=== PATIENT | male | born 1935 | race Caucasian/White ===

== ENCOUNTER 2017-01-20 14:07 | Inpatient (IN) ==
[2017-01-20] MEDS ORDERED: DUONEB NEB STA (14:46)
[2017-01-20] MEDS ORDERED: SOLU-MEDROL 40 MG IVP STA ×2 (14:51→19:19)
[2017-01-20 15:09] LABS: HEMATOCRIT 29.6 % (42.0-52.0); MEAN CORPUSCULAR HEMOGLOBIN 30.3 pg (27.0-31.0); MEAN CORPUSCULAR HGB CONC 30.4 (31.8-35.4); MEAN CORPUSCULAR VOLUME 99.7 fl (80.0-94.0); PLATELET COUNT 186 10^3/uL (140-440); RED BLOOD COUNT 2.97 10^6/ul (4.70-6.10)
--- NOTE | 2017-01-20 15:14 | ED.PDOC ---
General ED Provider: Dr. IVANA HANEY Chief Complaint: Shortness of Air Stated Complaint: Came for the worsening shortness of breath, he is been coughing, congested,. patient is on chemo. Time Seen by Physician: 15:12 Mode of Arrival: Wheelchair Information Source: Patient Primary Care Provider: MATTI VANN Nursing and Triage Documentation Reviewed and Agree: Yes Respiratory Complaint Exam - Shortness of Air Complaint/Exam Symptoms Are: Still present Timing: Constant Initial Severity: Moderate Current Severity: Mild Character: Reports: Dyspnea at rest, Dyspnea on exertion Aggravating: Reports: URI Alleviating: Reports: None Associated Signs and Symptoms: Reports: Cough, Wheezing, Nasal congestion. Denies: Chest pain with cough, Chest pain, Fever, Chills, Diaphoresis, Dizziness , Calf pain, Calf swelling, Edema, Rapid breathing, Labored breathing, Decreased intake Related History: Reports: Similar episode History of Healthcare-Acquired Pneumonia: No Pulmonary Embolism Risk Factors: Reports: None Cardiac Risk Factors: Reports: None Pseudomonas Risk Factors: Reports: None Tuberculosis Risk Factors: Reports: None Home Oxygen Use: No Recent Stress Test: No Recent Echo/LV Function: No Respiratory Distress: None Stridor Present: No Tracheal Deviation: No Subcutaneous Emphysema: No Accessory Muscle Use: No Retractions: Not Present Diminished Breath Sounds: No Prolonged Expiratory Phase: No Unable to Speak Full Sentences: No Fatigue: No Leg Swelling: No Di's Sign Present: No Grunting Respirations: No Kussmaul Respirations: No Differential Diagnoses: CHF, COPD Exacerbation, Pneumonia, Bronchitis Review of Systems - Review Of Systems Constitutional: Reports: Malaise, Weakness Eyes: Reports: No symptoms Ears, Nose, Mouth, Throat: Reports: No symptoms Respiratory: Reports: Cough, Short of air Cardiac: Reports: No symptoms GI: Reports: No symptoms : Reports: No symptoms Musculoskeletal: Reports: No symptoms Skin: Reports: No symptoms Neurological: Reports: No symptoms Endocrine: Reports: No symptoms Hematologic/Lymphatic: Reports: No symptoms All Other Systems: Reviewed and Negative Past Medical History - Past Medical History Previously Healthy: Yes Endocrine: Reports: None, Dyslipidemia Cardiovascular: Reports: CAD, Hypertension Respiratory: Reports: COPD Hematological: Reports: None Gastrointestinal: Reports: None Genitourinary: Reports: None Neuro/Psych: Reports: None Musculoskeletal: Reports: None Cancer: Reports: Other (prostate , CLL dr irizarry.) - Surgical History General Surgical History: Reports: CABG, Pacemaker, Hernia Repair, Other ( Prostate surgery) - Family History Family History: Reports: None - Social History Smoking Status: Former smoker Hx Substance Use: No Alcohol Screening: None Physical Exam - Physical Exam Appearance: Ill-appearing, Obese Ill-appearing: Mild Eyes: EOMI ENT: Ears normal, Nose normal, Oropharynx normal Respiratory: Rhonchi Cardiovascular: RRR, Tachycardia GI/: Soft, Nontender, No masses, Bowel sounds normal, No Organomegaly Musculoskeletal: Normal strength, ROM intact, No edema, No calf tenderness Skin: Warm, Dry, Normal color Neurological: Sensation intact, Motor intact, Reflexes intact, Cranial nerves intact, Alert, Oriented Psychiatric: Affect appropriate, Mood appropriate Interpretation - Radiology Interpretation Radiology Interpretation By: Radiologist Radiology Results: Positive Exam Interpreted: CT Scan Critical Care Note - Critical Care Note Total Time (mins): 30 Course - Course Hematology/Chemistry: 01/20/17 15:00 01/20/17 15:00 Orders, Labs, Meds: Lab Review 01/20/17 01/20/17 01/20/17 14:51 15:00 15:00 WBC 132.57 H* RBC 2.97 L Hgb 9.0 L Hct 29.6 L MCV 99.7 H MCH 30.3 MCHC 30.4 L RDW Coeff of Hoang 14.7 Plt Count 186 Neutrophils % (Manual) 6.0 L Lymphocytes % (Manual) 18.0 Reactive Lymphocytes 76.0 H Anisocytosis Not present D-Dimer (Manual) Puncture Site Rr O2 Saturation 90.0 L ABG pH 7.440 ABG pCO2 38.1 ABG pO2 56.0 L* ABG HCO3 25.9 ABG Total CO2 27 ABG Base Excess 2 Michael Test + FiO2 % 21.0 Sodium 138 Potassium 4.0 Chloride 103 Carbon Dioxide 25 Anion Gap 14.0 BUN 39 H Creatinine 2.19 H Estimated GFR (MDRD) 29.00 BUN/Creatinine Ratio 17.80 Glucose 225 H Calcium 9.5 Total Bilirubin 0.66 AST 16 ALT 15 Alkaline Phosphatase 59 Total Creatine Kinase 104 Troponin I 0.0400 B-Natriuretic Peptide Total Protein 6.5 Albumin 3.5 Globulin 3.0 Albumin/Globulin Ratio 1.17 01/20/17 01/20/17 15:00 15:00 WBC RBC Hgb Hct MCV MCH MCHC RDW Coeff of Hoang Plt Count Neutrophils % (Manual) Lymphocytes % (Manual) Reactive Lymphocytes Anisocytosis D-Dimer (Manual) 1996.70 Puncture Site O2 Saturation ABG pH ABG pCO2 ABG pO2 ABG HCO3 ABG Total CO2 ABG Base Excess Michael Test FiO2 % Sodium Potassium Chloride Carbon Dioxide Anion Gap BUN Creatinine Estimated GFR (MDRD) BUN/Creatinine Ratio Glucose Calcium Total Bilirubin AST ALT Alkaline Phosphatase Total Creatine Kinase Troponin I B-Natriuretic Peptide 406 H Total Protein Albumin Globulin Albumin/Globulin Ratio Orders Category Date Time Status ABG DRAW REQUEST Stat CARDIO 01/20/17 14:51 Completed EKG-(ED ONLY) Stat CARDIO 01/20/17 14:51 Completed NEBULIZER TREATMENT Stat CARDIO 01/20/17 14:46 Completed ED IV/MEDIPORT/POWERPORT .ONCE EMERGENCY 01/20/17 14:51 Active ABG Stat LAB 01/20/17 14:51 Completed B-TYPE NATRIURETIC PEPTIDE Stat LAB 01/20/17 15:00 Completed CBC W/ AUTO DIFF Stat LAB 01/20/17 15:00 Completed COMPREHENSIVE METABOLIC PANEL Stat LAB 01/20/17 15:00 Completed CREATINE KINASE Stat LAB 01/20/17 15:00 Completed D-DIMER Stat LAB 01/20/17 15:00 Completed MANUAL DIFFERENTIAL Stat LAB 01/20/17 15:00 Completed TROPONIN I Stat LAB 01/20/17 15:00 Completed 0.9 % Sodium Chloride [Saline Flush] MEDS 01/20/17 14:51 Ordered 1 syr IVF PRN PRN Ipratropium/Albuterol Neb [Duoneb] MEDS 01/20/17 14:46 Discontinued 1 vial NEB ONCE STA Methylprednisolone Sod Succ/Pf [Solu-Medrol 40 mg] MEDS 01/20/17 14:51 Discontinued 40 mg IVP ONCE STA Sodium Chloride 0.9% [Sodium Chloride] 1,000 ml MEDS 01/20/17 15:19 Active IV 100 mls/hr CT CHEST W/O CONTRAST Stat RADS 01/20/17 14:52 Completed Medications Generic Name Dose Route Start Last Admin Trade Name Freq PRN Reason Stop Dose Admin Sodium Chloride 1,000 mls @ 100 mls/hr 01/20/17 15:19 01/20/17 15:31 Sodium Chloride IV 01/21/17 01:18 100 mls/hr .Q10H STA Administration Sodium Chloride 1 syr 01/20/17 14:51 01/20/17 15:13 Saline Flush IVF 1 syr PRN PRN Administration To flush IV Discontinued Medications Generic Name Dose Route Start Last Admin Trade Name Diana PRN Reason Stop Dose Admin Albuterol/Ipratropium 1 vial 01/20/17 14:46 01/20/17 14:50 Duoneb NEB 01/20/17 14:47 1 vial ONCE STA Administration Methylprednisolone Sodium Succinate 40 mg 01/20/17 14:51 01/20/17 15:11 Solu-Medrol 40 Mg IVP 01/20/17 14:52 40 mg ONCE STA Administration Vital Signs: Temp Pulse Resp BP Pulse Ox 01/20/17 14:07 97.8 F 89 28 H 147/71 H 91 L Departure - Departure Time of Disposition: 16:30 Disposition: ADMITTED INPATIENT Discharge Problem: Pneumonia Qualifiers: Pneumonia type: due to unspecified organism Laterality: bilateral Lung location : lower lobe of lung Qualified Code(s): J18.9 - Pneumonia, unspecified organism Instructions: Community Acquired Pneumonia (ED) Condition: Stable Pt referred to PMD for follow-up: Yes Additional Instructions: Talked to Dr Barriga, he says it is not the BLAST crisis, but just a reaction to the medication IMBRUVICA Allergies/Adverse Reactions: Allergies No Known Allergies Allergy (Unverified 01/20/17 14:12) Home Medications: Ambulatory Orders Allopurinol 300 mg PO BEDTIME 01/20/17 Aspirin [Aspir-Low] 81 mg PO BEDTIME 01/20/17 Bisoprolol Fumarate 5 mg PO DIRECTED 01/20/17 Calcitriol 0.25 mcg PO BEDTIME 01/20/17 Clopidogrel Bisulfate [Clopidogrel] 75 mg PO BEDTIME 01/20/17 Dicyclomine HCl 10 mg PO BID 01/20/17 Furosemide 40 mg PO DAILY 01/20/17 Ibrutinib [Imbruvica] 3 tab PO BEDTIME 01/20/17 Insulin Aspart [Novolog Flexpen] 10 unit SQ DAILY 01/20/17 Insulin Aspart [Novolog Flexpen] 16 unit SQ BID 01/20/17 Insulin Detemir [Levemir] 76 unit SUBCUT BEDTIME 01/20/17 Lisinopril [Zestril] 5 mg PO DAILY 01/20/17 Meclizine HCl 25 mg PO PRN PRN 01/20/17 Mirtazapine 7.5 mg PO BEDTIME 01/20/17 Pantoprazole Sodium 40 mg PO DAILY 01/20/17 Pravastatin Sodium 80 mg PO DAILY 01/20/17 Venlafaxine HCl [Venlafaxine HCl ER] 37.5 mg PO DAILY 01/20/17 Transfer Form Completed: Yes Disposition Discussed With: Patient, Family
[2017-01-20] MEDS ORDERED: SODIUM CHLORIDE 1,000 ML IV STA (15:19)
[2017-01-20 15:21] LABS: ANISOCYTOSIS NOT PRESENT (NOT PRESENT); WHITE BLOOD COUNT 132.57 K/ul (4.2-10.2)
--- NOTE | 2017-01-20 15:26 | CT ---
EXAM: CT of the chest without contrast History: Short of breath Technique: Multiplanar CT images through the thorax were obtained without the administration of IV c ontrast Findings: Heart size is upper limits of normal. Coronary artery calcifications. No pericardial eff usion. Atherosclerotic vascular calcifications of the thoracic aorta. No thoracic aortic aneurysm. No axillary adenopathy. Small scattered mediastinal lymph nodes. Evaluation for hilar lymph nodes is limited due to the lack of contrast administration. Interlobular septal thickening. Mild emphysema. No pneumothorax. Moderate right pleural effusion an d small left pleural effusion. Bibasilar atelectasis or pneumonia. Within the visualized upper abdomen, no acute findings. No acute osseous abnormalities. Sternotomy wires. Impression: 1. Interstitial edema. 2. Moderate right pleural effusion and small left pleural effusion. 3. Bibasilar atelectasis or pneumonia. 4. Coronary artery disease.
[2017-01-20 15:34] LABS: ABG PCO2 38.1 mmHg (35-45)
[2017-01-20 15:36] LABS: ABG BASE EXCESS 2 (-2.0-2.0); ABG HCO3 25.9 (22.0-26.0); ABG TCO2 27 (22.0-28.0)
[2017-01-20 15:46] LABS: ALBUMIN 3.5 g/dL (3.4-5.0); ALBUMIN/GLOBULIN RATIO 1.17; BILIRUBIN,TOTAL 0.66 mg/dL (0.00-1.20); BUN/CREATININE RATIO 17.8; CALCIUM 9.5 mg/dL (8.2-10.2); CREATININE 2.19 mg/dL (0.60-1.10); TOTAL PROTEIN 6.5 g/dL (5.8-8.1); TROPONIN I 0.04 ng/ml (0.0000-0.4000)
[2017-01-20] MEDS ORDERED: ROCEPHIN 1 GM in SODIUM CHLORIDE 50 ML IV SCH (16:30)
[2017-01-20] MEDS ORDERED: SODIUM CHLORIDE 1,000 ML IV SCH (16:30)
[2017-01-20] MEDS ORDERED: LASIX IVP STA ×2 (16:33→19:23)
[2017-01-20] MEDS ORDERED: ROCEPHIN ONE (16:36)
[2017-01-20] MEDS ORDERED: LASIX ONE (16:37)
[2017-01-20] MEDS ORDERED: ZEBETA PO SCH (17:00)
[2017-01-20] MEDS ORDERED: DUONEB NEB ONE (17:48)
[2017-01-20] MEDS ORDERED: MORPHINE 2 MG/ML SYRINGE IVP STA ×2 (17:55→19:32)
[2017-01-20] MEDS ORDERED: ALBUTEROL 0.083% NEB NEB PRN (17:57)
[2017-01-20] MEDS ORDERED: DUONEB NEB SCH (18:00)
[2017-01-20] MEDS ORDERED: MORPHINE 2 MG/ML SYRINGE ONE (18:01)
[2017-01-20] MEDS ORDERED: BENADRYL IVP STA (18:35)
[2017-01-20] MEDS ORDERED: BENADRYL ONE (18:38)
[2017-01-20] MEDS ORDERED: VERSED ONE (18:53)
[2017-01-20] MEDS ORDERED: VERSED IVP STA ×2 (18:55→19:33)
[2017-01-20] MEDS ORDERED: ANECTINE ONE (18:56)
[2017-01-20] MEDS ORDERED: ANECTINE IVP STA ×2 (18:59→19:16)
[2017-01-20] MEDS ORDERED: NORCURON IVP STA (19:32)
[2017-01-20 19:34] LABS: ABG BASE EXCESS -4 (-2.0-2.0); ABG HCO3 23.7 (22.0-26.0); ABG PCO2 57.5 mmHg (35-45); ABG PH 7.222 (7.35-7.45); ABG TCO2 25 (22.0-28.0)
--- NOTE | 2017-01-20 19:44 | ED.PDOC ---
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 hernia. pacemaker - Medical History Past Medical History: Hypertension, Diabetes, Cancer, CAD - Physical Exam Heart Rate/Rhythm: Regular Rate
[2017-01-20] MEDS ORDERED: PHENYLEPHRINE ONE (19:56)
[2017-01-20] MEDS ORDERED: PHENYLEPHRINE IVP STA ×2 (19:58→20:03)
[2017-01-20] MEDS ORDERED: REMERON PO SCH (21:00)
[2017-01-20] MEDS ORDERED: LEVEMIR SUBCUT SCH (21:00)
[2017-01-20] MEDS ORDERED: BENTYL PO SCH (21:00)
[2017-01-20] MEDS ORDERED: ASPIRIN EC PO SCH (21:00)
[2017-01-20] MEDS ORDERED: INSULIN ASPART 16 UNIT SQ SCH (21:00)
[2017-01-20] MEDS ORDERED: NON-FORMULARY MEDICATION (Allopurinol [Allopurinol] 300 MG) PO SCH ×22 (21:00)
[2017-01-20] MEDS ORDERED: IBRUTINIB PO SCH (21:00)
[2017-01-20] MEDS ORDERED: NON-FORMULARY MEDICATION (Calcitriol [Calcitriol] 0.25 MCG) PO SCH (21:00)
[2017-01-20] MEDS ORDERED: PLAVIX PO SCH (21:00)
[2017-01-20 21:03] VITALS: BP 115/62
[2017-01-20 21:53] VITALS: TEMP 98; BMI 28.8
--- NOTE | 2017-01-21 06:56 | DI ---
EXAM: Single frontal view of the chest HISTORY: ET tube placement. COMPARISON: CT chest same day FINDINGS: ET tube with tip 6.2 cm above the jaylin. The cardiomediastinal silhouette is mildly enlar ged with sternotomy wires. There is bilateral interstitial ground-glass opacities. The costophrenic angles are not visualized. There is no pneumothorax. The osseous structures are unremarkable. IMPRESSION: 1. The ET tube with tip 6.2 cm above the jaylin. 2. Interstitial ground-glass opacities throughout the lungs consistent with findings on prior CT of mild pulmonary edema. 3. Pleural effusions seen on CT are not well visualized on this exam.
[2017-01-21] MEDS ORDERED: ZESTRIL PO SCH (09:00)
[2017-01-21] MEDS ORDERED: VENLAFAXINE HCL 37.5 MG PO SCH (09:00)
[2017-01-21] MEDS ORDERED: NON-FORMULARY MEDICATION (Pravastatin Sodium [Pravastatin Sodium] 80 MG) PO SCH ×22 (09:00)
[2017-01-21] MEDS ORDERED: PROTONIX PO SCH (09:00)
[2017-01-21] MEDS ORDERED: LASIX TAB PO SCH (09:00)
[2017-01-21] MEDS ORDERED: INSULIN ASPART 10 UNIT SQ SCH (09:00)
--- NOTE | 2017-02-02 14:35 | PN ---
DATE OF SERVICE: 01/20/17 SUBJECTIVE: The patient was admitted from the [facility] by me. After the patient was on the floor, the patient went into acute respiratory distress. The patient was put on the 50% Venturi mask. I came and examined the patient. The patient is in acute respiratory distress. Plan to intubate the patient. We gave the Versed 5 mg and Succinylcholine, paralysed the patient and tried to get the tube in, which was difficult tubing. We used the scope to put the tube. It was difficult as we could see the tracheal opening, but it was all inflamed and swollen. Meanwhile we called Mike Steele, Nurse Admitting Counselor, and he came and intubated the patient. The chest x-ray was showing the positive tube and the patient was transferred to [facility] for the higher care. TARA
--- NOTE | 2017-04-02 14:48 | SSS ---
DATE OF SERVICE: 01/20/17 (ADMIT) 01/20/17 (DISCHARGE) CHIEF COMPLAINT: Shortness of breath. HISTORY OF PRESENT ILLNESS: This is an 81-year-old male with history of leukemia. He has been having some shortness of breath, coughing, getting yellow-green phlegm productive, shortness of breath is getting worse. The patient was seen in the emergency room and was having some audible wheezing. BUN 39, creatinine 2.19. White count 132 and hemoglobin 9.0. ABGs showed mild hypoxic respiratory failure. BNP was 406. CT scan showed pleural effusion and pneumonia. At that time, the patient was admitted to the hospital for IV antibiotics and breathing treatments. PAST MEDICAL HISTORY: Leukemia - has been on treatment Coronary artery disease CHF Hypertension Dyslipidemia GERD History of prostate cancer Osteoarthritis Hypothyroidism Depression/anxiety PAST SURGICAL HISTORY: Prostate surgery Cataract surgery Bypass surgery, AAA repair Salivary gland surgery PERSONAL HISTORY: , lives with . No alcohol, no drugs. FAMILY HISTORY: Significant for diabetes and heart problems. REVIEW OF SYSTEMS: CONSTITUTIONAL: No night sweats. No fatigue, malaise, lethargy. No fever or chills. HEENT: Eyes: No visual changes. No eye pain. No eye discharge. ENT: No runny nose. No epistaxis. No sinus pain. No sore throat. No odynophagia. No ear pain. No congestion. RESPIRATORY: Cough, congestion, wheeze. Shortness of breath. No hemoptysis. CARDIOVASCULAR: No angina symptoms. No CHF symptoms. No atypical chest pain for CAD. No palpitations. No orthopnea. Leg edema. GASTROINTESTINAL: No abdominal pain. No nausea or vomiting. No diarrhea or constipation. No hematemesis. No hematochezia. GENITOURINARY: No dysuria. No hematuria. No obstructive symptoms. No discharge. No pain. No significant abnormal bleeding. MUSCULOSKELETAL: No musculoskeletal pain. No joint swelling. NEUROLOGICAL: Awake, alert, oriented to time, place and person. No headache. No neck pain. No syncope. No seizures. No dizziness. PSYCHIATRIC: Not anxious. No depression. No suicidal thoughts. No homicidal thoughts. SKIN: No rash. No lesions. No wounds. ENDOCRINE: No unexplained weight loss. No weight gain. HEMATOLOGIC/LYMPHATIC: No anemia. No purpura. No petechiae. No prolonged or excessive bleeding. No palpable lymph nodes. BRIEF HOSPITAL STAY: The patient was admitted to the hospital, was doing fine for one hour then later immediately the patient was in respiratory distress. We were trying to intubate the patient and eventually was intubated and transferred the patient to [facility], under the care of Oncologist and Satellite Specialist. PHYSICAL EXAMINATION: HEENT: Head normocephalic, atraumatic. Eyes: Extraocular muscles are intact. Pupils are equal, round and reactive to light and accommodation. Ears: No lesions. Nose appeared normal. Throat: No exudate or erythema. NECK: Supple. No JVD, no carotid bruit. No lymphadenopathy or thyromegaly. LUNGS: Decreased breath sounds with wheeze. Percussion note normal. Chest symmetrical. HEART: S1, S2, no S3. No murmurs. No cyanosis or clubbing. No ascites. Pulses: Dorsalis pedis and posterior tibial pulses +1 to +2 both sides. ABDOMEN: Soft. Nontender. Bowel sounds active. No CVA tenderness. No mass felt. EXTREMITIES: No edema. Full range of motion of all extremities, equal. NEUROLOGIC: No focal deficit. Cranial nerves II through XII are grossly intact. No headache, no double vision or headache. SKIN: Not dry. Intact. Turgor - normal. LYMPHATIC: No palpable lymph nodes/no lymphedema. MUSCULOSKELETAL: Normal joints with no swelling. Muscle tone is normal. Old/present records reviewed Office records reviewed. ALLERGIES: NKDA MEDICATIONS: (HOME) Protonix Flexpen - Novolog Mirtazapine Zestril Levemir Imbruvica Furosemide Dicyclomine Plavix Calcitriol Bisoprolol Aspirin Allopurinol Pravastatin Meclizine LABS/EKG'S/X-RAY/ECHO/ABG: Sodium 138, potassium 4.0, chloride 103, bicarb 25, BUN 39, creatinine 2.19, glucose 225, BNP 406. ABG pH 7.22, pc02 57.5, p02 432, white count 132.57, hemoglobin 9.7, hematocrit 29.6, platelet count 186. PROGRESS NOTES: See EMR. DIAGNOSES: 1. ACUTE HYPOXEMIC RESPIRATORY FAILURE 2. BILATERAL PNEUMONIA 3. ACUTE ON CHRONIC HEART FAILURE 4. LEUKEMIA CRISIS 5. HISTORY OF CAD 6. CHF 7. HYPERTENSION 8. DYSLIPIDEMIA PLAN: 1. Discharge the patient to the [facility] Intensive Care Unit, Rm #[id number] 2. Continue the ventilatory support 3. Morphine p.r.n. TIME SPENT: More than 85 minutes. CHHAYAD
== END 2017-01-20 20:12 | disposition short-term general hospital (02) | DRG 189 ==
LOC: ED 14:07 → SCU 16:30
PROVIDERS: ADMIT Emergency Medicine; ATTEND Emergency Medicine
PROC: 0BH17EZ Insertion of Endotracheal Airway into Trachea, Via Natural or Artificial Opening (ICD-10-PCS; principal; 2017-01-20)
DX: J96.01 Acute respiratory failure with hypoxia (principal); J18.9 Pneumonia, unspecified organism; J91.8 Pleural effusion in other conditions classified elsewhere; C91.10 Chronic lymphocytic leukemia of B-cell type not having achieved remission; R06.02 Shortness of breath; I10 Essential (primary) hypertension; I50.9 Heart failure, unspecified; I25.10 Atherosclerotic heart disease of native coronary artery without angina pectoris; R40.2430 Glasgow coma scale score 3-8, unspecified time; I95.9 Hypotension, unspecified; E78.5 Hyperlipidemia, unspecified; Z95.0 Presence of cardiac pacemaker; Z87.891 Personal history of nicotine dependence; Z79.01 Long term (current) use of anticoagulants; Z79.899 Other long term (current) drug therapy
CPT/HCPCS: 36415; 80053; 82550; 82803; 82962; 83880; 84484; 85007; 85025; 85379; 87081; 93005; 93010; 94002; 94640; 96365; 96375; 99284; 99291

== ENCOUNTER 2017-07-17 16:06 | Emergency (ER) ==
[2017-07-17 16:09] VITALS: BP 106/62; TEMP 97; BMI 27.1
--- NOTE | 2017-07-17 18:52 | ED.PDOC ---
General ED Provider: Dr. ANAMIKA MCRAE Chief Complaint: Fall Stated Complaint: Chest wall pain: Stated fell earlier today and landed on wooden steps stiking his lt lateral chest wall. Sustained abrasions to lt arm and forearm. Denies shortness of breath. Hx of CLL Time Seen by Physician: 18:30 Mode of Arrival: Walk-In Information Source: Patient, Family Exam Limitations: No limitations Primary Care Provider: MATTI VANN Nursing and Triage Documentation Reviewed and Agree: Yes Reviewed sepsis parameters & appropriate labs ordered?: Yes System Inflammatory Response Syndrome: Not Applicable Sepsis Protocol: For patient's 13 years and over: Temp is 96.8 and below OR 101 and greater Pulse >90 BPM Resp >20/minute Acutely Altered Mental Status Are patient's symptoms suggestive of a new infection, such as: -Pneumonia -Skin, Soft Tissue -Endocarditis -UTI -Bone, Joint Infection -Implantable Device -Acute Abdominal Infection -Wound Infection -Meningitis -Blood Stream Catheter Infection -Unknown System Inflammatory Response Syndrome: Not Applicable Trauma/Injury Complaint Exam - Truncal Trauma Complaint/Exam Location of Pain: Reports: Left, Posterior, Chest Symptoms Are: Still present Onset of Pain: Reports: Immediate Initial Severity: Moderate Current Severity: Moderate Mechanism: Reports: Direct blow, Fall Aggravating: Reports: Movement, Deep breathing Alleviating: Reports: Rest Associated Signs and Symptoms: Reports: Chest pain. Denies: Short of air, Cough , Abdominal pain, Nausea, Vomiting Related History: Reports: Similar episode, Aortic Aneurysm (history of aortic aneurysm stent) Immobilization Removed Post Exam: No Vertebral Tenderness Present: No Vertebral Deformity Present: No Trachial Deviation Present: No JVD Present: No Crepitus Present: No Diminished Breath Sounds: No Reproducible Pain at: lt lateral chest ribs 3-7 , no crepitance Muffled Heart Sounds Present: No Paradoxical Chest Wall Movement Present: No Abdominal Guarding Present: No Abdominal Rigidity Present: No Referred Shoulder Pain (Kehr's Sign) Present: No Skin Findings: Present: Abrasion Differential Diagnoses: Chest Wall Contusion, Rib Fracture, Other (abrasion ) Review of Systems - Review Of Systems Constitutional: Reports: No symptoms Eyes: Reports: No symptoms Ears, Nose, Mouth, Throat: Reports: No symptoms Respiratory: Reports: No symptoms Cardiac: Reports: No symptoms GI: Reports: No symptoms : Reports: No symptoms Musculoskeletal: Reports: Back pain, Other (chest wall pain ) Skin: Reports: Bruising, Other (abrasion ) Neurological: Reports: No symptoms Endocrine: Reports: No symptoms Hematologic/Lymphatic: Reports: No symptoms All Other Systems: Reviewed and Negative Past Medical History - Past Medical History Previously Healthy: Yes Endocrine: Reports: None, Dyslipidemia Cardiovascular: Reports: CAD, Hypertension Respiratory: Reports: COPD Hematological: Reports: None Gastrointestinal: Reports: None Genitourinary: Reports: None Neuro/Psych: Reports: None Musculoskeletal: Reports: None Cancer: Reports: Other (prostate , CLL dr irizarry.) - Surgical History General Surgical History: Reports: CABG, Pacemaker, Hernia Repair, Other ( Prostate surgery) - Family History Family History: Reports: None - Social History Smoking Status: Former smoker Hx Substance Use: No Alcohol Screening: None - Immunizations Tetanus Shot up to Date: Yes Physical Exam - Physical Exam Appearance: Well-appearing, Well-nourished Ill-appearing: Mild Pain Distress: Moderate Eyes: SERGIO, EOMI, Conjunctiva clear ENT: Ears normal, Nose normal, Oropharynx normal Neck: Nonsupple Respiratory: Airway patent, Breath sounds clear, Breath sounds equal (slight splinting to respiratons) Cardiovascular: RRR, Pulses normal, No murmur GI/: Soft, Nontender, No masses, Bowel sounds normal Musculoskeletal: Normal strength Skin: Warm (abrasions and skin tears lt forearm and arm at elbow) Neurological: Sensation intact, Motor intact, Alert, Oriented Psychiatric: Affect appropriate Interpretation - Radiology Interpretation Radiology Interpretation By: Radiologist Radiology Results: Positive Exam Interpreted: CT Scan (fractures of lt 5th and 6th ribs) Re-Evaluation - Re-Evaluation Time of Re-Evaluation: 20:00 Status: Unchanged Vital Signs Stable: Yes Pain Level: 5/10 Lungs: Clear Skin: Warm and Dry Neuro: Alert and Oriented X3 CV: RRR Critical Care Note - Critical Care Note Total Time (mins): 0 Course - Course Orders, Labs, Meds: Orders Category Date Time Status EKG-(ED ONLY) Stat CARDIO 07/17/17 18:[address] CHEST W/O CONTRAST Stat RADS 07/17/17 18:46 Completed Vital Signs: Temp Pulse Resp BP Pulse Ox 07/17/17 16:06 97 F L 92 H 20 106/62 97 Departure - Departure Time of Disposition: 20:10 Disposition: HOME SELF-CARE Discharge Problem: Multiple abrasions Chest wall trauma Qualifiers: Encounter type: initial encounter Qualified Code(s): S29.9XXA - Unspecified injury of thorax, initial encounter Ribs, multiple fractures Qualifiers: Encounter type: initial encounter Laterality: left Instructions: Rib Fracture (ED), Lidocaine (On the skin), Abrasion (ED) Condition: Good Pt referred to PMD for follow-up: Yes IPMP verified?: No Additional Instructions: Apply ice pack to lt side of chest wall site of injury to reduce pain()20 minutes 2-3 times daily) Take Tylenol for relief of pain Support device for chest wall Take periodic deep breathing exercise to allow for full chest expansion several times and hour Follow up with PCP 5-7 days Allergies/Adverse Reactions: Allergies No Known Allergies Allergy (Verified 07/17/17 16:11) Home Medications: Ambulatory Orders Allopurinol 300 mg PO BEDTIME 01/20/17 Aspirin [Aspir-Low] 81 mg PO BEDTIME 01/20/17 Bisoprolol Fumarate 5 mg PO DIRECTED 01/20/17 Calcitriol 0.25 mcg PO BEDTIME 01/20/17 Clopidogrel Bisulfate [Clopidogrel] 75 mg PO BEDTIME 01/20/17 Dicyclomine HCl 10 mg PO BID 01/20/17 Furosemide 40 mg PO DAILY 01/20/17 Insulin Aspart [Novolog Flexpen] 10 unit SQ DAILY 01/20/17 Insulin Aspart [Novolog Flexpen] 16 unit SQ BID 01/20/17 Insulin Detemir [Levemir] 50 unit SUBCUT BEDTIME 01/20/17 Lisinopril [Zestril] 5 mg PO DAILY 01/20/17 Meclizine HCl 25 mg PO PRN PRN 01/20/17 Pantoprazole Sodium 40 mg PO DAILY 01/20/17 Pravastatin Sodium 80 mg PO DAILY 01/20/17 Venlafaxine HCl [Venlafaxine HCl ER] 37.5 mg PO DAILY 01/20/17 Disposition Discussed With: Patient, Family
--- NOTE | 2017-07-17 19:29 | CT ---
EXAM: CT of the chest without contrast History: Left chest wall trauma, history of leukemia Comparison: Chest CT 01/20/2017 Technique: Multiplanar CT images through the thorax were obtained without the administration of IV c ontrast Findings: Heart is mildly enlarged. Coronary calcifications. No pericardial effusion. A few borde rline enlarged mediastinal lymph nodes measuring up to 1 cm. Evaluation for hilar lymph nodes is macias ited due to the lack of contrast administration. No bulky hilar adenopathy. Diffuse bronchial wall thickening. No consolidated pneumonia. No pleural fluid and no pneumothorax. No suspicious lung mas ses or lung nodules. Within the visualized upper abdomen, partially visualized aortic stent graft. Sternotomy wires. Pac er wires. Mildly displaced left lateral fifth and sixth rib fractures. Impression: 1. Mildly displaced left lateral fifth and sixth rib fractures. No pneumothorax. 2. Bronchial wall thickening but no evidence for pneumonia. 3. Borderline enlarged 1 cm mediastinal lymph nodes.
== END 2017-07-17 20:22 | disposition home or self-care (01) ==
LOC: ED 16:06
DX: S22.42XA Multiple fractures of ribs, left side, initial encounter for closed fracture (principal); S50.812A Abrasion of left forearm, initial encounter; S40.812A Abrasion of left upper arm, initial encounter; W19.XXXA Unspecified fall, initial encounter; I25.810 Atherosclerosis of coronary artery bypass graft(s) without angina pectoris; Z95.0 Presence of cardiac pacemaker; Z95.828 Presence of other vascular implants and grafts
CPT/HCPCS: 93005; 93010; 99283

== ENCOUNTER 2018-05-27 18:41 | Outpatient (CLI) | END 2018-05-27 19:00 | disposition short-term general hospital (02) | LOC: AMBL 18:41 | PROVIDERS: ATTEND Internal Medicine | DX: R53.1 Weakness (principal); R25.1 Tremor, unspecified; R06.9 Unspecified abnormalities of breathing; I50.9 Heart failure, unspecified; Z99.81 Dependence on supplemental oxygen ==

== ENCOUNTER 2018-05-30 01:39 | Outpatient (CLI) | payer OTHER | END 2018-05-30 19:15 | disposition short-term general hospital (02) | LOC: AMBL 01:39 | PROVIDERS: ATTEND Internal Medicine Geriatric Medicine | DX: R41.82 Altered mental status, unspecified (principal); E16.2 Hypoglycemia, unspecified; R06.83 Snoring; R61 Generalized hyperhidrosis; R40.4 Transient alteration of awareness ==

== ENCOUNTER 2018-06-09 12:50 | Outpatient (CLI) | payer OTHER | END 2018-06-09 13:10 | disposition short-term general hospital (02) | LOC: AMBL 12:50 | PROVIDERS: ATTEND Internal Medicine | DX: R82.90 Unspecified abnormal findings in urine (principal); R06.9 Unspecified abnormalities of breathing ==